=== PATIENT | female | born 1945 | race Caucasian/White ===

== ENCOUNTER 2017-01-26 15:01 | Emergency (ER) | payer MEDICARE, OTHER ==
[2017-01-26 15:42] LABS: BASO % 0.5 % (0.1-1.2); EOS % 0.5 % (0.7-5.8); GRAN # 4.8 10_X3_uL (1.6-6.1); GRAN % 76.4 % (34.0-71.1); HEMATOCRIT 33.9 % (34-45); HEMOGLOBIN 10.3 g/dL (11.2-15.7); LYMPH # 0.8 10_X3_uL (1.2-3.7); MEAN CORPUSCULAR HEMOGLOBIN 28.1 pg (27.0-33.0); MEAN CORPUSCULAR HGB CONC 30.4 g/dL (32.0-36.0); MEAN CORPUSCULAR VOLUME 92.6 fL (79-95); MEAN PLATELET VOLUME 9.6 fl (7.5-11.5); MONO # 0.6 10_X3_uL (0.2-0.9); MONO % 9.6 % (4.7-12.5); PLATELET COUNT 150 x10_3/uL (182-369); RED BLOOD COUNT 3.66 x10_6/uL (3.9-5.2); RED CELL DISTRIBUTION WIDTH 19.2 % (11.7-14.4); WHITE BLOOD COUNT 6.3 x10_3/uL (4.0-10.0)
[2017-01-26 16:07] LABS: ALBUMIN 3.6 gm/dL (3.4-5.0); BILIRUBIN,TOTAL 0.38 mg/dL (0.0-1.0); CREATININE 3.1 mg/dL (0.6-1.3); MAGNESIUM 1.8 mg/dL (1.8-2.4); POTASSIUM 3.6 mmol/L (3.5-5.1); TOTAL PROTEIN 6.2 gm/dL (6.4-8.2)
== END 2017-01-26 16:30 | disposition home or self-care (01) ==
LOC: ER 15:01
PROVIDERS: Internal Medicine
DX: R00.2 Palpitations (principal); R11.0 Nausea; R53.1 Weakness; I25.10 Atherosclerotic heart disease of native coronary artery without angina pectoris; E11.22 Type 2 diabetes mellitus with diabetic chronic kidney disease; I12.9 Hypertensive chronic kidney disease with stage 1 through stage 4 chronic kidney disease, or unspecified chronic kidney disease; N18.9 Chronic kidney disease, unspecified; Z99.2 Dependence on renal dialysis; Z95.1 Presence of aortocoronary bypass graft; Z88.8 Allergy status to other drugs, medicaments and biological substances; Z88.5 Allergy status to narcotic agent; Z79.899 Other long term (current) drug therapy; Z79.4 Long term (current) use of insulin
CPT/HCPCS: 36415; 71010; 80053; 82550; 82553; 83735; 85025; 93005; 99284; 99285-25